=== PATIENT | male | born 1980 | race Caucasian/White ===

== ENCOUNTER 2017-09-08 17:54 | Emergency (ER) | payer MEDICARE, OTHER ==
[~2017-09-08] VITALS: Ht 177.8 cm; Wt 83.9 kg
[~2017-09-08 17:54] MED LIST: ACEBUTCAFT PO; ALBIPROI; ALBU.083IS IH; ALBU90I INH; ALBU90OI6 INH; ALBU90OI61 INH; AMOX500 PO; Amoxicillin500 MG PO; Amoxil400 MG/5 M PO; Ativan1 MG PO; Bactrim Ds Tab1 EACH PO; CEPH500 PO; CLIN300 PO; CODGUAEL PO; CYCL10 PO; Cheratussin AC118 ML PO; DIPATR PO; FLUT.05NI; GAVILAX17 GM PO; GUAI600T33 PO; HYDACE10B PO; HYDACE5 PO; HYDMOR2 PO; HYDR1TAB94 PO; IBUP600 PO; IBUP800 PO; Keflex500 MG PO; LACTOBACILLUS PO; LIDO700A20 TOP; LORA1 PO; LORA10ER PO; METPRE4DP PO; Mobic15 MG PO; NAPR500 PO; NAPR550 PO; NEOPOLHCSU OT; Naprosyn500 MG PO; Norco 10-325 T1 EACH PO; Norco 5-325 Ta1 EACH PO; ONDA8 PO; ONDA8ODT MM; OXYACE5T PO; PARO25 PO; PENVK500 PO; PRED20 PO; PROC10 PO; PROM25 PO; Pepcid20 MG PO; Percocet 5-3251 EACH PO; RISP2 PO; RXOXYACE PO; Robaxin-750750 MG PO; Robaxin500 MG PO; SACC250C PO; STOOL SOFTENER1 EAC2 PO; SULTRIDS PO; TRAM50 PO; Ventolin/Prove6.7 GM; Zithromax250 MG PO; Zofran Odt4 MG SL; Zofran4 MG PO
[2017-09-08] MEDS ORDERED: BENZ100A PO (19:16)
[2018-06-06] MEDS ORDERED: LORA.5 (08:12)
[2018-06-06] MEDS ORDERED: FLONASE ALLERG9.9 ML (08:12)
[2018-06-06] MEDS ORDERED: IBUP400 (08:12)
[2018-06-06] MEDS ORDERED: LISI5 PO (08:12)
[2018-06-06] MEDS ORDERED: ALBU90OI INH (09:31)
[2018-06-06] MEDS ORDERED: Prednisone20 MG PO (09:31)
[2018-06-06] MEDS ORDERED: BENZ100A PO (09:31)
[2018-06-06] MEDS ORDERED: Cheratussin AC118 ML PO (09:31)
[2018-06-25] MEDS ORDERED: MECL12.5 PO (11:34)
[2018-06-25] MEDS ORDERED: ONDA4ODT MM (11:34)
== END 2017-09-08 19:23 | disposition home or self-care (01) ==
LOC: ER 17:54
DX: J06.9 Acute upper respiratory infection, unspecified (principal); J45.909 Unspecified asthma, uncomplicated; F17.200 Nicotine dependence, unspecified, uncomplicated; Z88.8 Allergy status to other drugs, medicaments and biological substances; Z88.5 Allergy status to narcotic agent; Z79.899 Other long term (current) drug therapy
CPT/HCPCS: 99282

== ENCOUNTER 2017-10-08 08:57 | Emergency (ER) | payer MEDICARE, OTHER ==
[~2017-10-08] VITALS: Ht 177.8 cm; Wt 83.9 kg
[~2017-10-08 08:57] MED LIST changes: +BENZ100A PO
[2017-10-08] MEDS ORDERED: NAPR550 PO (10:03)
[2018-06-06] MEDS ORDERED: IBUP400 (08:12)
[2018-06-06] MEDS ORDERED: FLONASE ALLERG9.9 ML (08:12)
[2018-06-06] MEDS ORDERED: LISI5 PO (08:12)
[2018-06-06] MEDS ORDERED: LORA.5 (08:12)
[2018-06-06] MEDS ORDERED: Prednisone20 MG PO (09:31)
[2018-06-06] MEDS ORDERED: Cheratussin AC118 ML PO (09:31)
[2018-06-06] MEDS ORDERED: BENZ100A PO (09:31)
[2018-06-06] MEDS ORDERED: ALBU90OI INH (09:31)
[2018-06-25] MEDS ORDERED: ONDA4ODT MM (11:34)
[2018-06-25] MEDS ORDERED: MECL12.5 PO (11:34)
== END 2017-10-08 10:17 | disposition home or self-care (01) ==
LOC: ER 08:57
DX: R07.89 Other chest pain (principal); J45.909 Unspecified asthma, uncomplicated; F17.210 Nicotine dependence, cigarettes, uncomplicated
CPT/HCPCS: 71101; 96372; 99283; J1885

== ENCOUNTER 2018-01-21 15:01 | Emergency (ER) | payer MEDICARE, OTHER ==
[~2018-01-21] VITALS: Ht 177.8 cm; Wt 83.9 kg
[2018-01-21] MEDS ORDERED: ALBU90OI61 INH (15:14)
[2018-01-21 15:47] LABS: BASOPHILS ABSOLUTE AUTO 0.04 K/mm3 (0.00-0.23); BASOPHILS PERCENT AUTO 0 % (0-2); EOSINOPHILS ABSOLUTE AUTO 0.14 K/mm3 (0.00-0.68); EOSINOPHILS PERCENT AUTO 1 % (0-6); Hematocrit 43.4 % (37.0-53.0); Hemoglobin 14.8 g/dL (13.5-17.5); IMMATURE GRAN ABSOLUTE AUTO 0.03 K/mm3 (0.00-0.10); IMMATURE GRAN PERCENT AUTO 0 % (0-1); LYMPHOCYTES ABSOLUTE AUTO 3.42 K/mm3 (0.84-5.20); LYMPHOCYTES PERCENT AUTO 35 % (21-46); MONOCYTES ABSOLUTE AUTO 0.77 K/mm3 (0.16-1.47); MONOCYTES PERCENT AUTO 8 % (4-13); Mean Corpuscular HGB 30.8 pg (26.0-34.0); Mean Corpuscular HGB Conc 34.1 g/dL (31.5-36.5); Mean Corpuscular Volume 90 fL (80-100); NEUTROPHILS ABSOLUTE AUTO 5.47 K/mm3 (1.96-9.15); NEUTROPHILS PERCENT AUTO 55 % (41-73); Platelet Count 260 K/mm3 (150-400); RDW Coefficient Variation 12.5 % (11.7-14.2); RDW Standard Deviation 41.7 fL (35.1-46.3); Red Blood Cell Count 4.81 M/mm3 (4.30-5.90); White Blood Cell Count 9.87 K/mm3 (4.00-11.30)
[2018-01-21 16:11] LABS: Alanine Aminotransfer (ALT/SGP 39 U/L (12-78); Albumin/Globulin Ratio 1.2 (0.8-1.8); Alk Phos 80 U/L (50-136); Anion Gap 9 mmol/L (6-16); Aspartate Aminotrans (AST/SGOT 18 U/L (12-37); Bilirubin, Total 0.3 mg/dL (0.1-1.0); Blood Urea Nitrogen 9 mg/dL (8-24); Bun/Creatinine Ratio 11.1 (12.0-20.0); CO2, Blood 23 mmol/L (21-32); Calcium, Blood 8.3 mg/dL (8.5-10.1); Chloride, Blood 111 mmol/L (98-108); Creatinine, Blood 0.81 mg/dL (0.60-1.20); Globulin, Blood 3.3 g/dL (2.2-4.0); Glomerular Filtration Rate >60 (60-); Glucose, Blood 90 mg/dL (70-99); Potassium, Blood 3.7 mmol/L (3.5-5.5); Sodium, Blood 143 mmol/L (136-145); Total Protein, Blood 7.3 g/dL (6.4-8.2); Troponin I <0.015 ng/mL (0.000-0.040)
[2018-01-21 17:57] LABS: Source, Urine Clean Catch
[2018-01-21 17:58] LABS: Bilirubin, Urine Neg (Neg); Blood, Urine Neg (Neg); Glucose Qualitative, Urine Neg (Neg); Ketones, Urine Neg (Neg); Leukocyte Esterase, Urine Neg (Neg); Nitrite, Urine Neg (Neg); Protein, Urine Neg (Neg); Specific Gravity, Urine 1.015 (1.003-1.022); Urobilinogen, Urine NORM (Normal)
[2018-01-21 18:04] LABS: Appearance, Urine Clear (Clear); Color, Urine Yellow (P-Yellow)
[2018-01-21] MEDS ORDERED: Prilosec Otc20 MG PO (20:03)
== END 2018-01-21 20:23 | disposition home or self-care (01) ==
LOC: ER 15:01
PROVIDERS: Internal Medicine
DX: R07.89 Other chest pain (principal); Z88.8 Allergy status to other drugs, medicaments and biological substances; Z88.5 Allergy status to narcotic agent; Z79.899 Other long term (current) drug therapy; J45.909 Unspecified asthma, uncomplicated; F17.210 Nicotine dependence, cigarettes, uncomplicated
CPT/HCPCS: 36415; 71046; 80053; 81003; 84484; 85025; 85379; 85730; 93005; 93010; 96360; 99284; J1885; J7030

== ENCOUNTER 2018-02-06 21:16 | Emergency (ER) | payer MEDICARE, OTHER ==
[~2018-02-06] VITALS: Ht 177.8 cm; Wt 86.2 kg
[~2018-02-06 21:16] MED LIST changes: +Prilosec Otc20 MG PO
== END 2018-02-07 01:12 | disposition left against medical advice (07) ==
LOC: ER 21:16
DX: Z53.21 Procedure and treatment not carried out due to patient leaving prior to being seen by health care provider (principal)

== ENCOUNTER 2018-03-18 17:08 | Emergency (ER) | payer MEDICARE, OTHER ==
[~2018-03-18] VITALS: Ht 177.8 cm; Wt 86.2 kg
[2018-03-18] MEDS ORDERED: PRED20 PO (18:16)
[2018-03-18] MEDS ORDERED: DEXT30SU PO (18:16)
== END 2018-03-18 18:26 | disposition home or self-care (01) ==
LOC: ER 17:08
DX: J45.901 Unspecified asthma with (acute) exacerbation (principal); Z88.8 Allergy status to other drugs, medicaments and biological substances; Z88.5 Allergy status to narcotic agent; F17.210 Nicotine dependence, cigarettes, uncomplicated
CPT/HCPCS: 94640; 99283-25

== ENCOUNTER 2018-06-12 09:06 | Emergency (ER) | payer MEDICARE, OTHER ==
[~2018-06-12] VITALS: Ht 177.8 cm; Wt 83.9 kg
[~2018-06-12 09:06] MED LIST changes: +ALBU90OI INH; +DEXT30SU PO; +FLONASE ALLERG9.9 ML; +IBUP400; +LISI5 PO; +LORA.5; +Prednisone20 MG PO
[2018-06-12] MEDS ORDERED: LORA1 PO (09:56)
[2018-06-12 10:30] LABS: BASOPHILS ABSOLUTE AUTO 0.03 K/mm3 (0.00-0.23); BASOPHILS PERCENT AUTO 0 % (0-2); EOSINOPHILS ABSOLUTE AUTO 0.12 K/mm3 (0.00-0.68); EOSINOPHILS PERCENT AUTO 2 % (0-6); Hematocrit 44.5 % (37.0-53.0); Hemoglobin 14.9 g/dL (13.5-17.5); IMMATURE GRAN ABSOLUTE AUTO 0.01 K/mm3 (0.00-0.10); IMMATURE GRAN PERCENT AUTO 0 % (0-1); LYMPHOCYTES ABSOLUTE AUTO 2.34 K/mm3 (0.84-5.20); LYMPHOCYTES PERCENT AUTO 30 % (21-46); MONOCYTES ABSOLUTE AUTO 0.71 K/mm3 (0.16-1.47); MONOCYTES PERCENT AUTO 9 % (4-13); Mean Corpuscular HGB 30.8 pg (26.0-34.0); Mean Corpuscular HGB Conc 33.5 g/dL (31.5-36.5); Mean Corpuscular Volume 92 fL (80-100); Mean Platelet Volume 11.3 fL (9.1-12.4); NEUTROPHILS ABSOLUTE AUTO 4.54 K/mm3 (1.96-9.15); NEUTROPHILS PERCENT AUTO 59 % (41-73); Platelet Count 268 K/mm3 (150-400); RDW Coefficient Variation 12.4 % (11.7-14.2); RDW Standard Deviation 42.1 fL (35.1-46.3); Red Blood Cell Count 4.84 M/mm3 (4.30-5.90); White Blood Cell Count 7.75 K/mm3 (4.00-11.30)
[2018-06-12 10:59] LABS: Free Thyroxine 0.95 ng/dL (0.70-1.60)
[2018-06-12 11:00] LABS: Alanine Aminotransfer (ALT/SGP 26 U/L (12-78); Albumin/Globulin Ratio 1.1 (0.8-1.8); Alk Phos 97 U/L (50-136); Anion Gap 8 mmol/L (6-16); Aspartate Aminotrans (AST/SGOT 16 U/L (12-37); Bilirubin, Total 0.3 mg/dL (0.1-1.0); Blood Urea Nitrogen 6 mg/dL (8-24); Bun/Creatinine Ratio 8.1 (12.0-20.0); CO2, Blood 21 mmol/L (21-32); Calcium, Blood 8.2 mg/dL (8.5-10.1); Chloride, Blood 110 mmol/L (98-108); Creatinine, Blood 0.74 mg/dL (0.60-1.20); Globulin, Blood 3.6 g/dL (2.2-4.0); Glomerular Filtration Rate >60 (60-); Glucose, Blood 110 mg/dL (70-99); Potassium, Blood 4.1 mmol/L (3.5-5.5); Sodium, Blood 139 mmol/L (136-145); Total Protein, Blood 7.6 g/dL (6.4-8.2)
[2018-06-12 11:02] LABS: Thyroid Stimulating Hormone 0.159 uIU/mL (0.360-4.800)
== END 2018-06-12 11:28 | disposition home or self-care (01) ==
LOC: ER 09:06
PROVIDERS: Physician Assistant
DX: R94.6 Abnormal results of thyroid function studies (principal); J45.909 Unspecified asthma, uncomplicated; F17.210 Nicotine dependence, cigarettes, uncomplicated; Z88.8 Allergy status to other drugs, medicaments and biological substances; Z88.5 Allergy status to narcotic agent; Z79.899 Other long term (current) drug therapy; Z79.51 Long term (current) use of inhaled steroids
CPT/HCPCS: 36415; 80053; 84439; 84443; 85025; 96360; 99283-25; J7030